=== PATIENT | female | born 1940 | race Caucasian/White ===

== ENCOUNTER 2019-07-21 13:51 | Outpatient (REF) | payer MEDICARE, SELFPAY ==
[2019-07-23 14:36] LABS: Giardia Ag, F Negative (Negative)
[2019-07-26 15:37] LABS: Misc Referral (MAYO) See Comments
== END 2019-07-21 14:11 ==
LOC: LBN 13:51
PROVIDERS: Visit Provider Physician Assistant
DX: R19.7 Diarrhea, unspecified (principal)
CPT/HCPCS: 87329; 87505

== ENCOUNTER 2019-07-26 16:08 | Outpatient (CLI) | payer MEDICARE, SELFPAY ==
[2019-07-26 17:32] LABS: Anion Gap 8.4 mmol/L (3-11); BUN 4 mg/dL (7-18); CO2 29.6 mmol/L (21.0-32.0); CREATININE 0.74 mg/dL (0.55-1.02); Calcium 8.9 mg/dL (8.5-10.1); Chloride 103 mmol/L (98-107); Glucose 112 mg/dL (70-100); Potassium 3.7 mmol/L (3.5-5.1); Sodium 141 mmol/L (136-145)
== END 2019-07-26 16:28 ==
PROVIDERS: PCP Internal Medicine; Visit Provider Internal Medicine
DX: R19.7 Diarrhea, unspecified (principal)
CPT/HCPCS: 36415; 80048; 87324